=== PATIENT | female | born 1945 | race Caucasian/White ===

== ENCOUNTER → 2017-03-08 | Outpatient (CLI) | payer MEDICARE ==
[~2017-03-08] MED LIST: ASPIRIN 32325 MG/TAB PO; CALCIUM 500 + D1 TA1 PO; CIPRO 250MG TA250 MG PO; CIPRO 500MG TA500 MG PO; CITRACAL PLUS1 TAB PO; COREG 25MG25 MG/TAB PO; CRANBERRY1 CAP PO; FERRATE325 MG PO; LASIX 40MG TABL40 MG PO; MICRO-K 1010 MEQ PO; NORVASC2.5 MG PO; PHILLIPS1 TAB PO; PRINIVIL10 MG PO; PRINIVIL20 MG PO; PROAIR HFA0.09 MG/AC IH; PROTONIX 40MG T40 MG PO; RT ADVAIR 128 DISKUS IH; SYNTHROID0.1 MG/TAB PO; SYNTHROID0.112 MG/T PO; VITAMIN D50000 I2 PO; ZYRTEC 10MG10 MG PO
== END ==
LOC: MC.RAD 10:57
DX: Z12.31 Encounter for screening mammogram for malignant neoplasm of breast (principal)

== ENCOUNTER → 2017-09-12 | Outpatient (CLI) | payer OTHER ==
[2017-09-12 16:37] LABS: HEMATOCRIT 41.2 % (37.0-47.0); MEAN CELL VOLUME 88 fl (80.0-100.0); MEAN CORPUSCULAR HEMOGLOBIN 28 pg (27.0-31.0); MEAN CORPUSCULAR HGB CONC 32 g/dl (33.0-37.0); MEAN PLATELET VOLUME 9.3 fl (7.4-10.4); PLATELET COUNT 283 K/mm3 (130-400); RED BLOOD COUNT 4.66 M/mm3 (4.10-5.30); WHITE BLOOD COUNT 8.9 K/mm3 (4.8-10.8)
[2017-09-12 17:02] LABS: ERYTHROCYTE SEDIMENTATION RATE 29 mm/hr (0-30)
== END ==
LOC: COL.LAB 16:16
PROVIDERS: Orthopaedic Surgery
DX: M25.561 Pain in right knee (principal)

== ENCOUNTER → 2017-11-08 | Outpatient (CLI) | payer OTHER ==
[~2017-11-08] VITALS: Ht 163.8 cm; Wt 135.9 kg
[~2017-11-08] MED LIST changes: -ASPIRIN 32325 MG/TAB PO; +ASPIRIN E.C. 8181 MG PO; +BENADRYL25 M2 PO; +LOTRISONE CREAM15 GM TP; +MASON NATURAL2000 IU PO; +MYTREX OINT 10015 GM TP; -RT ADVAIR 128 DISKUS IH; +RT ADVAIR 228 DISKUS IH; +TEMOVATE0.052 TOP
[2017-11-08 08:14] VITALS: BP 104/70; PULSE 60
== END ==
LOC: LIGHT 07:50
DX: K21.9 Gastro-esophageal reflux disease without esophagitis (principal); M17.0 Bilateral primary osteoarthritis of knee; I10 Essential (primary) hypertension; E89.0 Postprocedural hypothyroidism; G47.33 Obstructive sleep apnea (adult) (pediatric); I48.91 Unspecified atrial fibrillation; H91.92 Unspecified hearing loss, left ear; E88.81 Metabolic syndrome and other insulin resistance; E66.01 Morbid (severe) obesity due to excess calories; Z68.43 Body mass index [BMI] 50.0-59.9, adult; Z71.3 Dietary counseling and surveillance
CPT/HCPCS: G0463

== ENCOUNTER → 2017-11-21 | Outpatient (CLI) | payer OTHER | LOC: LIGHT 11-14 08:59 | DX: Z01.89 Encounter for other specified special examinations (principal) ==

== ENCOUNTER → 2017-11-30 | Outpatient (CLI) | payer OTHER ==
[~2017-11-30] VITALS: Ht 163.8 cm; Wt 133.6 kg
[2017-11-30 09:12] VITALS: BP 152/84; PULSE 64
== END ==
LOC: LIGHT 09:00
DX: G47.33 Obstructive sleep apnea (adult) (pediatric) (principal); E88.81 Metabolic syndrome and other insulin resistance; E66.01 Morbid (severe) obesity due to excess calories; Z68.42 Body mass index [BMI] 45.0-49.9, adult; Z71.3 Dietary counseling and surveillance; K21.9 Gastro-esophageal reflux disease without esophagitis
CPT/HCPCS: G0463

== ENCOUNTER → 2018-02-08 | Outpatient (CLI) | payer BC ==
[~2018-02-08] VITALS: Ht 165.1 cm; Wt 128.4 kg
[~2018-02-08] MED LIST changes: +CARDIZEM CD 18180 MG PO; +CARDIZEM CD 24240 MG PO; +CITRACAL + D CA1 TAB PO; -CITRACAL PLUS1 TAB PO; +ELIQUIS 5MG PO; -MASON NATURAL2000 IU PO; -PRINIVIL20 MG PO; +TAMBOCOR 1100 MG/TAB PO; +VITAMIN D 1001000 IU PO; +VOLTAREN GEL 1%1 TU TP
[2018-02-08 10:18] VITALS: BP 140/82; PULSE 92
== END ==
LOC: LIGHT 09:43
DX: E88.81 Metabolic syndrome and other insulin resistance (principal); E66.01 Morbid (severe) obesity due to excess calories; Z68.42 Body mass index [BMI] 45.0-49.9, adult; Z71.3 Dietary counseling and surveillance; K21.9 Gastro-esophageal reflux disease without esophagitis
CPT/HCPCS: G0463

== ENCOUNTER 2018-02-27 17:16 | Emergency (ER) | payer BC ==
[~2018-02-27] VITALS: Ht 165.1 cm; Wt 128.6 kg
[2018-02-27 17:19] VITALS: TEMP 98.2
[2018-02-27 17:59] LABS: BASO # 0.1 (0.0-0.2); BASO % 0.7 % (0.0-2.0); EOS # 0.2 (0.0-0.7); EOS % 2.1 % (0-4.0); GRAN # 7.5 (1.4-6.5); GRAN % 72.9 % (42.2-75.2); HEMATOCRIT 40.4 % (37.0-47.0); LYMPH # 1.5 (1.2-3.4); LYMPH % 14.6 % (20.0-51.0); MEAN CELL VOLUME 87 fl (80.0-100.0); MEAN CORPUSCULAR HEMOGLOBIN 28 pg (27.0-31.0); MEAN CORPUSCULAR HGB CONC 32 g/dl (33.0-37.0); MEAN PLATELET VOLUME 9.1 fl (7.4-10.4); MONO % 9.6 % (1.7-9.3); PLATELET COUNT 302 K/mm3 (130-400); RED BLOOD COUNT 4.65 M/mm3 (4.10-5.30); REDCELL DISTRIBUTION WIDTH-CV 15.2 % (11.5-14.5)
[2018-02-27 18:04] LABS: ALBUMIN 3.7 gm/dL (3.5-5.0); BILIRUBIN,TOTAL 0.4 mg/dL (0.0-1.0); CALCIUM 8.9 mg/dL (8.4-10.2); CREATININE, serum 0.91 mg/dL (0.52-1.25); POTASSIUM 4.1 mmol/L (3.4-5.0); TOTAL PROTEIN 7.6 gm/dL (6.4-8.2)
[2018-02-27 18:32] VITALS: BP 135/77; PULSE 72
== END 2018-02-27 18:32 | disposition home or self-care (01) ==
LOC: COL.ER 17:16
PROVIDERS: Family Medicine
DX: I48.91 Unspecified atrial fibrillation (principal); Z79.01 Long term (current) use of anticoagulants; Z79.82 Long term (current) use of aspirin; Z79.52 Long term (current) use of systemic steroids

== ENCOUNTER → 2018-03-09 | Outpatient (CLI) | payer BC | LOC: MC.RAD 09:21 | DX: N63.11 Unspecified lump in the right breast, upper outer quadrant (principal); N64.89 Other specified disorders of breast; N63.20 Unspecified lump in the left breast, unspecified quadrant ==

== ENCOUNTER → 2018-03-15 | Outpatient (CLI) | payer BC ==
[~2018-03-15] VITALS: Ht 165.1 cm; Wt 129.3 kg
[2018-03-15 10:45] VITALS: BP 150/58; PULSE 64
== END ==
LOC: LIGHT 10:00
DX: E88.81 Metabolic syndrome and other insulin resistance (principal); E66.01 Morbid (severe) obesity due to excess calories; Z68.42 Body mass index [BMI] 45.0-49.9, adult; Z71.3 Dietary counseling and surveillance; K21.9 Gastro-esophageal reflux disease without esophagitis
CPT/HCPCS: G0463

== ENCOUNTER → 2018-04-12 | Outpatient (CLI) | payer BC ==
[~2018-04-12] VITALS: Ht 165.1 cm; Wt 128.6 kg
[~2018-04-12] MED LIST changes: +COREG12.5 MG PO
[2018-04-12 11:17] VITALS: BP 114/70; PULSE 60
== END ==
LOC: LIGHT 10:35
DX: K21.9 Gastro-esophageal reflux disease without esophagitis (principal); E66.01 Morbid (severe) obesity due to excess calories; Z68.42 Body mass index [BMI] 45.0-49.9, adult; Z71.3 Dietary counseling and surveillance
CPT/HCPCS: G0463

== ENCOUNTER 2018-07-12 23:40 | Observation (INO) | payer BC ==
[~2018-07-12] VITALS: Ht 165.1 cm; Wt 124.3 kg
[2018-07-13] VITALS (284 sets, daily range): BP systolic 91–165; BP diastolic 42–88; PULSE 62–78; TEMP 97.7–99.5; O2SAT 83–100
[2018-07-13 00:33] LABS: COLLECTION METHOD CLEAN CATCH
[2018-07-13 00:40] LABS: MUCOUS Present /lpf; PH 5 (5-8); URINE APPEARANCE Hazy; URINE BACTERIA None Seen /hpf; URINE BILIRUBIN Negative (NEGATIVE); URINE BLOOD 2+ (NEGATIVE); URINE COLOR Yellow; URINE GLUCOSE Negative (NEGATIVE); URINE KETONE 1+ (NEGATIVE); URINE LEUKOCYTE ESTERASE 2+ (NEGATIVE); URINE NITRATE Negative (NEGATIVE); URINE PROTEIN(semi-quant) Negative (NEGATIVE); URINE UROBILINOGEN Negative (NEGATIVE)
[2018-07-13 00:40] LABS: BASO % 0.2 % (0.0-2.0); EOS # 0.1 (0.0-0.7); EOS % 0.8 % (0-4.0); GRAN # 10.8 (1.4-6.5); GRAN % 82.2 % (42.2-75.2); HEMATOCRIT 39.8 % (37.0-47.0); LYMPH # 1.2 (1.2-3.4); LYMPH % 9.1 % (20.0-51.0); MEAN CELL VOLUME 87 fl (80.0-100.0); MEAN CORPUSCULAR HEMOGLOBIN 28 pg (27.0-31.0); MEAN CORPUSCULAR HGB CONC 33 g/dl (33.0-37.0); MEAN PLATELET VOLUME 9.7 fl (7.4-10.4); MONO % 7.3 % (1.7-9.3); PLATELET COUNT 266 K/mm3 (130-400); REDCELL DISTRIBUTION WIDTH-CV 14.4 % (11.5-14.5)
[2018-07-13 00:49] LABS: ALBUMIN 3.6 gm/dL (3.5-5.0); BILIRUBIN,TOTAL 0.7 mg/dL (0.0-1.0); C-REACTIVE PROTEIN 4.4 mg/dL (0.0-0.9); CALCIUM 8.8 mg/dL (8.4-10.2); CREATININE, serum 0.71 mg/dL (0.52-1.25); POTASSIUM 3.7 mmol/L (3.4-5.0)
[2018-07-13 09:32] LABS: COLLECTION METHOD CLEAN CATCH
[2018-07-13 09:59] LABS: MUCOUS Present /lpf; PH 6 (5-8); SQUAMOUS EPITHELIAL 0-2 /hpf; URINE APPEARANCE Clear; URINE BACTERIA None Seen /hpf; URINE BILIRUBIN Negative (NEGATIVE); URINE BLOOD 1+ (NEGATIVE); URINE COLOR Yellow; URINE GLUCOSE Negative (NEGATIVE); URINE KETONE 1+ (NEGATIVE); URINE LEUKOCYTE ESTERASE Negative (NEGATIVE); URINE NITRATE Negative (NEGATIVE); URINE PROTEIN(semi-quant) Negative (NEGATIVE); URINE UROBILINOGEN Negative (NEGATIVE)
[2018-07-14 04:29] VITALS: BP 140/39; BP 157/53; PULSE 71
[2018-07-14 07:27] VITALS: BP 147/72; PULSE 72; TEMP 98.5
[2018-07-14 07:58] LABS: HEMOGLOBIN 11.4 g/dl (12.5-16.0); MEAN CELL VOLUME 89 fl (80.0-100.0); MEAN CORPUSCULAR HEMOGLOBIN 28 pg (27.0-31.0); MEAN CORPUSCULAR HGB CONC 32 g/dl (33.0-37.0); MEAN PLATELET VOLUME 9.4 fl (7.4-10.4); PLATELET COUNT 240 K/mm3 (130-400); RED BLOOD COUNT 4.04 M/mm3 (4.10-5.30); REDCELL DISTRIBUTION WIDTH-CV 14.7 % (11.5-14.5)
[2018-07-14 08:00] LABS: HEMATOCRIT 35.9 % (37.0-47.0)
[2018-07-14 08:13] LABS: ALBUMIN 3.1 gm/dL (3.5-5.0); BILIRUBIN,TOTAL 0.6 mg/dL (0.0-1.0); CALCIUM 7.9 mg/dL (8.4-10.2); CREATININE, serum 0.65 mg/dL (0.52-1.25); POTASSIUM 3.8 mmol/L (3.4-5.0); TOTAL PROTEIN 6.3 gm/dL (6.4-8.2)
[2018-07-14 08:18] LABS: BAND 6 % (0-10); LYMPHOCYTE 7 % (20.0-51.0); NEUTROPHILS 85 % (42.0-75.2)
[2018-07-14 08:19] LABS: PLATELET ESTIMATE NORMAL (NORMAL)
[2018-07-14 11:33] VITALS: BP 148/57; PULSE 73; TEMP 99.5
[2018-07-14 16:44] VITALS: BP 147/73; PULSE 72; TEMP 98.8
[2018-07-14 20:37] VITALS: BP 152/51; PULSE 78; TEMP 98.5
[2018-07-14 23:25] VITALS: BP 154/65; PULSE 71; TEMP 98.2
[2018-07-15] VITALS (7 sets, daily range): BP systolic 130–174; BP diastolic 56–77; PULSE 69–78; TEMP 97.9–99
[2018-07-16 00:04] VITALS: BP 145/61; PULSE 64; TEMP 98.4
[2018-07-16 04:53] VITALS: BP 142/55; PULSE 68; TEMP 99.2
[2018-07-16 08:06] VITALS: BP 166/69; PULSE 66; TEMP 99
[2018-07-16 11:58] LABS: BASO % 0.3 % (0.0-2.0); EOS # 0.2 (0.0-0.7); EOS % 2.7 % (0-4.0); GRAN # 6.4 (1.4-6.5); GRAN % 72.7 % (42.2-75.2); HEMOGLOBIN 10.2 g/dl (12.5-16.0); LYMPH # 1.1 (1.2-3.4); LYMPH % 12.1 % (20.0-51.0); MEAN CELL VOLUME 88 fl (80.0-100.0); MEAN CORPUSCULAR HEMOGLOBIN 28 pg (27.0-31.0); MEAN CORPUSCULAR HGB CONC 32 g/dl (33.0-37.0); MEAN PLATELET VOLUME 9.5 fl (7.4-10.4); MONO # 1.1 (0.1-0.6); PLATELET COUNT 231 K/mm3 (130-400); RED BLOOD COUNT 3.62 M/mm3 (4.10-5.30); REDCELL DISTRIBUTION WIDTH-CV 14.5 % (11.5-14.5)
[2018-07-16 12:03] VITALS: BP 180/79; PULSE 65; TEMP 98.1
[2018-07-16 12:05] LABS: HEMATOCRIT 31.8 % (37.0-47.0)
[2018-07-16 12:11] LABS: CALCIUM 7.8 mg/dL (8.4-10.2); CREATININE, serum 0.6 mg/dL (0.52-1.25); MAGNESIUM 1.7 mg/dL (1.6-2.3); POTASSIUM 3.3 mmol/L (3.4-5.0)
[2018-07-16] MEDS ORDERED: MICRO-K 10 EXT10 MEQ PO (12:49)
[2018-07-16] MEDS ORDERED: LASIX 20MG TABL20 MG PO (12:50)
[2018-07-16 14:00] VITALS: BP 145/63; PULSE 64
== END 2018-07-16 14:55 | disposition home or self-care (01) ==
LOC: COL.ER 23:40 → MEDICAL 07-13 03:11 → ICU 07-13 03:11 → MEDICAL 07-13 03:11 → ICU 07-13 09:03 → MEDICAL 07-13 10:26
PROVIDERS: Emergency Medicine; Nurse Practitioner; Physician Assistant
DX: K85.90 Acute pancreatitis without necrosis or infection, unspecified (principal); I48.91 Unspecified atrial fibrillation; E03.9 Hypothyroidism, unspecified; I10 Essential (primary) hypertension; G47.33 Obstructive sleep apnea (adult) (pediatric); E87.6 Hypokalemia; Z79.82 Long term (current) use of aspirin; Z79.01 Long term (current) use of anticoagulants; Z82.49 Family history of ischemic heart disease and other diseases of the circulatory system; Z80.0 Family history of malignant neoplasm of digestive organs; Z83.3 Family history of diabetes mellitus; Z82.3 Family history of stroke; Z88.5 Allergy status to narcotic agent; Z88.6 Allergy status to analgesic agent; Z91.040 Latex allergy status; Z88.8 Allergy status to other drugs, medicaments and biological substances
CPT/HCPCS: 99233-AI; 99239; C9113; G0378; J0360; J1170; J2405; J2550; J2704; J2765; J3010; J7030

== ENCOUNTER → 2019-07-01 | Outpatient (CLI) | payer BC ==
[~2019-07-01] MED LIST changes: +LASIX 20MG TABL20 MG PO; +MICRO-K 10 EXT10 MEQ PO
== END ==
LOC: MC.RAD 05-20 11:00
DX: Z12.31 Encounter for screening mammogram for malignant neoplasm of breast (principal); N63.10 Unspecified lump in the right breast, unspecified quadrant

== ENCOUNTER → 2019-07-04 | Outpatient (CLI) | payer BC | LOC: MC.RAD 09:46 | DX: N63.10 Unspecified lump in the right breast, unspecified quadrant (principal) ==

== ENCOUNTER → 2020-05-11 | Outpatient (CLI) | payer BC | LOC: MC.RAD 08:37 | DX: N63.10 Unspecified lump in the right breast, unspecified quadrant (principal) ==

== ENCOUNTER → 2021-01-15 | Outpatient (CLI) | payer BC | LOC: MC.RAD 10:00 | DX: N63.10 Unspecified lump in the right breast, unspecified quadrant (principal) ==

== ENCOUNTER → 2022-04-27 | Outpatient (CLI) | payer BC | LOC: MC.RAD 13:46 | DX: Z12.31 Encounter for screening mammogram for malignant neoplasm of breast (principal) ==

== ENCOUNTER → 2024-07-10 | Outpatient (CLI) | payer MEDICARE | LOC: MC.RAD 10:15 | DX: Z12.31 Encounter for screening mammogram for malignant neoplasm of breast (principal); N64.89 Other specified disorders of breast ==

== ENCOUNTER → 2024-07-23 | Outpatient (CLI) | payer MEDICARE | LOC: MC.RAD 07:55 | DX: N63.15 Unspecified lump in the right breast, overlapping quadrants (principal) | CPT/HCPCS: A4648 ==